=== PATIENT | male | born 1995 ===

== ENCOUNTER 2019-12-09 19:44 | Emergency (ER) | payer OTHER ==
[~2019-12-09] VITALS: Ht 182.9 cm; Wt 90.7 kg
== END 2019-12-09 21:50 | disposition home or self-care (01) ==
LOC: ER 19:44
DX: Z04.1 Encounter for examination and observation following transport accident (principal); V48.6XXA Car passenger injured in noncollision transport accident in traffic accident, initial encounter; Y92.410 Unspecified street and highway as the place of occurrence of the external cause; Y99.0 Civilian activity done for income or pay
CPT/HCPCS: 99283